=== PATIENT | male | born 1970 | race Caucasian/White ===

== ENCOUNTER → 2018-12-08 | Outpatient (CLI) | payer OTHER ==
--- NOTE | 2018-12-08 14:12 | EST ---
EXERCISE STRESS AGE: 47 SEX: M HT: 74" PROTOCOL: Stress Test. STAGE: 4 DURATION OF EXERCISE: 10:30 HEART RATE REST: 88 BLOOD PRESSURE REST: 131/96 MAXIMUM HEART RATE ACHIEVED: 149 MAXIMUM BLOOD PRESSURE: 182/85 85% MPHR: 147 100% MPHR: 173 METS: 12.1 INDICATIONS: Chest pain. CLINICAL INFORMATION: Baseline rhythm is sinus mechanism, rate of 88, normal axis and intervals, poor R-wave progression. Baseline blood pressure 131/96 mmHg. Patient exercised on Yuriy protocol for 10 minutes 30 seconds reaching peak rate 149 beats per minute which is equal to 86% maximum predicted heart rate. Peak blood pressure 182/85 mmHg. Test was terminated secondary to fatigue. There was no chest pain. Electrocardiograph monitoring revealed a 0.[address]-segment depression in the inferolateral leads that resolved in recovery. Rare premature ventricular contractions were noted. CONCLUSION: 1. Good exercise tolerance. 2. No chest pain. 3. Borderline positive electrocardiograph stress testing. 4. If clinically indicated, an imaging stress test will be helpful. MMODL / IJN: [id number] /
== END | disposition home or self-care (01) ==
LOC: RADNMMAIN 08:49
PROVIDERS: ATTEND Family Medicine
DX: R07.9 Chest pain, unspecified (principal)
CPT/HCPCS: 93017